=== PATIENT | male | born 1995 | race Caucasian/White ===

== ENCOUNTER 2020-06-29 21:04 | Inpatient (IN) | payer OTHER ==
[2020-06-29 21:51] VITALS: BMI 24.4
[2020-06-29] MEDS ORDERED: BISMUTH SUBSALICYLATE 524 MG/30 ML UD PO PRN (23:29)
[2020-06-29] MEDS ORDERED: MAGNESIUM CITRATE 300 ML BOTTLE PO PRN (23:29)
[2020-06-29] MEDS ORDERED: IBUPROFEN 400 MG TABLET (FP) PO PRN (23:29)
[2020-06-29] MEDS ORDERED: ACETAMINOPHEN 325 MG TABLET (FP) PO PRN ×2 (23:29)
[2020-06-29] MEDS ORDERED: MENTHOL/PHENOL 1 EACH UD MM PRN (23:29)
[2020-06-29] MEDS ORDERED: ONDANSETRON *ODT* 4 MG TABLET SL PRN (23:29)
[2020-06-29] MEDS ORDERED: MAG HYDROX/AL HYDROX/SIMETH 30 ML UNIT-DOSE CUP PO PRN (23:29)
[2020-06-29] MEDS ORDERED: QUEtiapine FUMARATE 50 MG TABLET PO ONE (23:29)
[2020-06-29] MEDS ORDERED: METHOCARBAMOL 500 MG TABLET PO PRN (23:29)
[2020-06-29] MEDS ORDERED: MAGNESIUM HYDROX 2400MG/30ML ORAL SUSPENSION 30 ML CUP PO PRN (23:29)
[2020-06-29] MEDS ORDERED: TRIMETHOBENZAMIDE HCL 200MG/2ML INJ IM PRN (23:33)
[2020-06-30] MEDS: chlordiazePOXIDE HCL 25 MG CAPSULE PO SCH ×5 (00:33→22:16)
[2020-06-30] MEDS: NICOTINE POLACRILEX 4 MG GUM BUC PRN (00:38)
[2020-06-30] MEDS: PRENATAL VITAMINS W/ FOLIC ACID TABLET (FP) PO SCH (10:15)
[2020-06-30] MEDS: NICOTINE 21 MG/24 HOURS TOPICAL PATCH TD SCH (10:15)
[2020-06-30 12:17] LABS: POTASSIUM 3.6 mmol/L (3.5-5.1)
[2020-06-30 12:19] LABS: ALBUMIN 3.7 g/dl (3.4-5.0); CALCIUM 8.8 mg/dL (8.5-10.1)
[2020-06-30 12:21] LABS: BLOOD UREA NITROGEN 9.6 mg/dL (7-18)
[2020-06-30 12:23] LABS: CREATININE 0.8 mg/dL (0.55-1.3)
[2020-06-30 12:24] LABS: BILIRUBIN,TOTAL 0.7 mg/dL (0.2-1); TOT PROT 6.6 g/dl (6.4-8.2)
[2020-06-30 12:27] LABS: HEMATOCRIT 40.3 % (35.4-49); HEMOGLOBIN 13.8 GM/dL (11.7-16.9); MCH 30.5 pg (25.7-33.7); MCHC 34.3 g/dl (32.0-35.9); MEAN PLT VOLUME 8.6 fl (7.5-11.1); PLATELET COUNT 208 K/MM3 (134-434); RBC 4.53 M/mm3 (4.00-5.60); RDW 13.4 % (11.9-15.9); WHITE BLOOD COUNT 4.9 K/mm3 (4.0-10.0)
[2020-06-30] MEDS: chlordiazePOXIDE HCL 25 MG CAPSULE PO PRN ×2 (14:42→19:42)
[2020-06-30] MEDS: hydrOXYzine PAMOATE 25 MG CAPSULE (FP) PO PRN (14:46)
[2020-06-30] MEDS: GABAPENTIN 100 MG CAPSULE PO SCH (22:14)
[2020-06-30] MEDS: MELATONIN 5 MG TABLETS PO PRN (22:14)
[2020-06-30] MEDS: THIAMINE HCL 100 MG TABLET (FP) PO SCH (22:14)
[2020-06-30] MEDS: QUEtiapine FUMARATE 100 MG TABLET (FP) PO SCH (22:15)
[2020-07-01] MEDS: chlordiazePOXIDE HCL 25 MG CAPSULE PO SCH ×4 (06:10→22:02)
[2020-07-01] MEDS: GABAPENTIN 100 MG CAPSULE PO SCH ×3 (06:11→21:57)
[2020-07-01] MEDS: PRENATAL VITAMINS W/ FOLIC ACID TABLET (FP) PO SCH (10:17)
[2020-07-01] MEDS: NICOTINE 21 MG/24 HOURS TOPICAL PATCH TD SCH (10:17)
[2020-07-01] MEDS: NICOTINE POLACRILEX 4 MG GUM BUC PRN ×2 (18:53→21:08)
[2020-07-01] MEDS: hydrOXYzine PAMOATE 25 MG CAPSULE (FP) PO PRN (19:42)
[2020-07-01] MEDS: chlordiazePOXIDE HCL 25 MG CAPSULE PO PRN (19:43)
[2020-07-01] MEDS: THIAMINE HCL 100 MG TABLET (FP) PO SCH (21:56)
[2020-07-01] MEDS: MELATONIN 5 MG TABLETS PO PRN (21:56)
[2020-07-01] MEDS: QUEtiapine FUMARATE 100 MG TABLET (FP) PO SCH (21:56)
[2020-07-02] MEDS: GABAPENTIN 100 MG CAPSULE PO SCH ×2 (07:20→13:29)
[2020-07-02] MEDS: chlordiazePOXIDE HCL 10 MG CAPSULE PO SCH ×3 (07:20→17:16)
[2020-07-02] MEDS: chlordiazePOXIDE HCL 10 MG CAPSULE PO PRN ×2 (08:21→14:21)
[2020-07-02] MEDS: PRENATAL VITAMINS W/ FOLIC ACID TABLET (FP) PO SCH (10:17)
[2020-07-02] MEDS: NICOTINE 21 MG/24 HOURS TOPICAL PATCH TD SCH (10:19)
[2020-07-02 11:18] LABS: POTASSIUM 3.5 mmol/L (3.5-5.1)
[2020-07-02 11:24] LABS: ALBUMIN 3.4 g/dl (3.4-5.0); BLOOD UREA NITROGEN 7.8 mg/dL (7-18); CALCIUM 8.8 mg/dL (8.5-10.1)
[2020-07-02 11:28] LABS: CREATININE 0.7 mg/dL (0.55-1.3)
[2020-07-02 11:30] LABS: BILIRUBIN,TOTAL 0.3 mg/dL (0.2-1); TOT PROT 6.4 g/dl (6.4-8.2)
[2020-07-02] MEDS: NICOTINE POLACRILEX 4 MG GUM BUC PRN (13:45)
[2020-07-02 17:40] VITALS: BP 136/84; PULSE 95; TEMP 98.2
[2020-07-03] MEDS ORDERED: chlordiazePOXIDE HCL 10 MG CAPSULE PO SCH (05:00)
[2020-07-04] MEDS ORDERED: chlordiazePOXIDE HCL 10 MG CAPSULE PO ONE (05:00)
== END 2020-07-02 17:29 | disposition left against medical advice (07) | DRG 770 ==
LOC: YASAS 21:04 → Y3N 22:43
PROVIDERS: ADMIT Allergy & Immunology; ATTEND Allergy & Immunology
PROC: HZ2ZZZZ Detoxification Services for Substance Abuse Treatment (ICD-10-PCS; principal; 2020-06-29)
DX: F10.230 Alcohol dependence with withdrawal, uncomplicated (principal); F17.210 Nicotine dependence, cigarettes, uncomplicated; F10.220 Alcohol dependence with intoxication, uncomplicated; F19.24 Other psychoactive substance dependence with psychoactive substance-induced mood disorder; G47.00 Insomnia, unspecified; K21.9 Gastro-esophageal reflux disease without esophagitis; Z56.0 Unemployment, unspecified; Z59.0 Homelessness; Z86.59 Personal history of other mental and behavioral disorders
CPT/HCPCS: 36415; 80053; 85027; 86780; 93005; 93010; C9803; Q0162; U0003